=== PATIENT | male | born 1980 | race Asian ===

== ENCOUNTER 2018-01-31 08:54 | Outpatient (CLI) | payer BC | END 2018-01-31 08:55 | disposition home or self-care (01) | LOC: BICULT 08:54 | PROVIDERS: ATTEND Internal Medicine Gastroenterology | DX: B19.10 Unspecified viral hepatitis B without hepatic coma (principal); Z80.0 Family history of malignant neoplasm of digestive organs; K76.89 Other specified diseases of liver | CPT/HCPCS: 76705 ==

== ENCOUNTER 2018-08-03 08:11 | Outpatient (CLI) | payer BC ==
--- NOTE | 2018-08-03 10:24 | ULT ---
HEPATIC ULTRASOUND WITH DOPPLER: HISTORY: Hepatitis-B. COMPARISON: 01/31/2018 FINDINGS: Increased echogenicity of the liver is again seen, consistent with fatty infiltration. No focal mass or intrahepatic ductal dilatation is noted. No gallstones, gallbladder wall thickening, or perichol ecystic fluid is identified. The common duct measures 2 mm in diameter. The spleen measures 11.7 cm in length and is normal. The pancreas is not satisfactorily visualized due to overlying bowel gas. No free fluid is seen in the right upper quadrant. There is normal flow and spectral wave-form in the hepatic, portal, and splenic vasculature. IMPRESSION: 1. Hepatic steatosis. 2. No evidence of cholelithiasis. POS: [facility]
== END 2018-08-03 08:12 | disposition home or self-care (01) ==
LOC: BICULT 08:11
PROVIDERS: ATTEND Internal Medicine Gastroenterology
DX: B19.10 Unspecified viral hepatitis B without hepatic coma (principal); K76.0 Fatty (change of) liver, not elsewhere classified
CPT/HCPCS: 76705